=== PATIENT | male | born 1970 | race Caucasian/White ===

== ENCOUNTER 2024-12-02 15:55 | Emergency (ER) | payer MEDICAID, SELFPAY ==
[2024-12-02 16:00] VITALS: BP 94/62; PULSE 96; RESP 24; TEMP 37; O2SAT 95
--- NOTE | 2024-12-02 16:04 | XR_ITS ---
Examination: AP chest single view Technique one AP portable semiupright chest single view Exam date and time: November 24, 2024 1620 hours INDICATIONS: Shortness of breath coughing beginning 2 days ago FINDINGS: Opacity in the lingular segment obscuring detail left cardiac contour Right lung clear Normal heart size IMPRESSION: Pneumonia in the lingular segment left upper lobe
--- NOTE | 2024-12-02 16:05 | PD.EDADULT ---
ED General RME/HPI General Chief complaint: Shortness of Breath/Dyspnea Stated complaint: SOB Time Seen by Provider: 12/02/24 16:02 Arrival date/time: 12/02/24 15:55 CC: Cough shortness of breath vomiting x 1 diarrhea x 1 HPI in the last 5 days significant other had similar symptoms a week ago. Patient denies chest pain or difficulty breathing. Patient continues to smoke half pack of cigarettes a day. Patient has a history of diabetes hypertension hyperlipidemia has not been taking any of the medications for the last week. Related Data Previous Rx's ?Medication ?Instructions ?Recorded meloxicam 7.5 mg tablet 7.5 mg PO QDAY #10 tabs 12/02/24 Review of Systems Review of Systems Narrative Review of Systems: GEN: No fever, no chills, no weight loss EYES: No discharge, no visual changes, no pain HEENT: No ear pain, no congestion, no sore throat PULM: No shortness of breath, + cough, no congestion CV: No chest pain, no dyspnea on exertion, no palpitations GI: No nausea, no vomiting, no diarrhea, no pain, no constipation : No frequency, no urgency, no dysuria MUSC/SKEL: No joint pain, no back pain SKIN: No rash PSYCH: No hallucinations, no depression HEME/LYMPH: No easy bleeding or bruising tendencies NEURO: + weakness, no headache, + body aches ED Exam Narrative Physical exam: [General: Obese not in any acute distress Head normocephalic HEENT: Within acceptable limits Neck is supple nontender Chest equal chest rise nontender to palpation Respiratory: Clear to auscultation no wheezes crackles or rubs CV: Rate rhythm is regular no murmurs rubs or clicks Abdomen is distended secondary to body habitus soft nontender no masses positive bowel sounds all 4 quadrants Back: No CVA tenderness no spinous process tenderness from cervical spine thoracic and lumbar spine Skin: Intact no petechiae rash induration ulceration or crepitus Extremities: Moving all extremity against resistance cap refill less than 2 seconds neurosensory intact Neuro: Awake alert oriented x3 Glascow coma 15 no focal deficits] Course Course Course Narrative: Reassessment of the patient at 1745, the patient's resting comfortably oxygen saturations at 94% on room air. The patient is influenza A positive no other acute finding. Although the chest x-ray is a question of a lingual pneumonia I do not feel the patient has a bacterial infection, this is mostly pneumonia patient will be discharged home on Tamiflu. Quality Measures none Orders Category Date Time Status Bedside COVID-19 Antigen Test NOW Care 12/02/24 16:02 Completed Bedside Influenza A&B Antigen Test NOW Care 12/02/24 16:04 Completed XR chest 1V Stat Exams 12/02/24 16:04 Completed CBC Stat Lab 12/02/24 16:19 Completed CMP [Comprehensive Metabolic Panel] Stat Lab 12/02/24 16:19 Completed Path Review Blood Smear Stat Lab 12/02/24 16:19 Completed None Vital Signs Vital signs: Vital Signs Temperature 98.6 F 12/02/24 16:00 Pulse Rate 96 12/02/24 16:00 Respiratory Rate 24 H 12/02/24 16:00 Blood Pressure 94/62 12/02/24 16:00 Pulse Oximetry (%) 95 12/02/24 16:00 Oxygen Delivery Method Nasal Cannula 12/02/24 16:00 Oxygen Flow Rate 3 12/02/24 16:00 [facility] Patient data External records reviewed:: [facility] previous records and EMS form Clinical information provided by:: patient and EMS Social determinants that could affect healthcare access:: none Patient has the following chronic illnesses:: Smoker diabetes hypertension hyperlipidemia How is presenting disease/condition affected by chronic disease/condition?: no chronic disease Evaluation data The following diagnostics were reviewed and interpreted by me:: lab results Lab and/or radiology exams considered but not ordered:: CBC shows no acute leukocytosis anemia thrombocytopenia CMP shows no significant lecture light imbalances, creatinine 1.5 no transaminitis or T. bili elevation Influenza A positive Interpretation Summary: Influenza A positive Medications Medications considered but not ordered:: None Medication administrations:: None Consultations Consultation(s) initiated? (list below): No Diagnosis Differential Diagnosis ED Complaint MDM: Pneumonia influenza A COVID Most likely diagnosis given after review of the tests above:: Influenza A Admission Indicated Admission indicated?: not indicated Explain why admission is indicated or not indicated:: Stable for outpatient follow-up Admission Request Was there a request for admission?: No Disposition Plan Disposition Plan: Discharge Discharge Attestation Discharge Attestation: The patient and all family members were given an opportunity to ask questions and understood the discharge instructions. Discharge instructions specifically effects, indications for sooner follow up or return to the emergency department, and the expected course of current diagnosis. Patient condition: Stable Medical Decision Making Differential Diagnosis Differential Diagnosis: Pneumonia influenza A COVID Lab Data 12/02/24 16:19 12/02/24 16:19 Labs: Lab Results 12/02/24 Range/Units 16:19 WBC 6.3 (3.8-10.6) Thou/mm3 RBC 4.96 (4.50-5.90) Miln/mm3 Hgb 15.0 (13.5-16.0) g/dL Hct 45.3 (41.0-53.0) % MCV 91 (80-100) fL MCH 30.2 (25.0-35.0) pg MCHC 33.1 (31.0-37.0) g/dl RDW Std Deviation 43.1 (35.1-43.9) fL Plt Count 59 L (140-440) Thou/mm3 Neut % (Auto) 59 (37-80) % Lymph % (Auto) 29 (10-50) % Lyman % (Auto) 10 (0-12) % Eos % (Auto) 2 (0-10) % Baso % (Auto) 1 (0-2.5) % Neut # (Auto) 3.7 (1.8-7.7) Thou/mm3 Lymph # (Auto) 1.8 (1.0-4.8) Thou/mm3 Lyman # (Auto) 0.6 (0.0-0.8) Thou/mm3 Eos # (Auto) 0.1 (0.0-0.5) Thou/mm3 Baso # (Auto) 0.0 (0.0-0.2) Thou/mm3 Immature Gran # (Auto) 0.02 H (0.00-0.00) Thou/mm3 Absolute Nucleated RBC 0.00 (0.00-0.00) Thou/mm3 Immature Gran % 0 (0-0) % Nucleated RBC % 0 (0) /100 WBC Smear Path Review Sent to Pathologist Sodium 134 L (136-145) mMol/L Potassium 4.2 (3.4-5.1) mMol/L Chloride 98 (98-107) mMol/L Carbon Dioxide 29.7 (20.0-31.0) mMol/L Anion Gap 6 L (7-16) BUN 22 (9-23) mg/dL Creatinine 1.5 H (0.6-1.3) mg/dL Estim Creat Clear Calc 73.0 (>60) mL/min eGFR 55 L (60 - ) See Note BUN/Creatinine Ratio 15 (12-20) Ratio Glucose 122 H (74-106) mg/dL Calculated Osmolality 272 L (275-295) Calcium 9.1 (8.3-10.6) mg/dL Corrected Calcium 9.1 (8.5-10.1) mg/dL Total Bilirubin 0.5 (0.3-1.2) mg/dL AST 42 H (0-34) U/L ALT 17 (10-49) U/L Alkaline Phosphatase 86 (46-116) U/L Total Protein 7.6 (5.7-8.2) gm/dL Albumin 4.8 (3.5-5.0) gm/dL Globulin 2.8 (2.3-3.5) gm/dL Albumin/Globulin Ratio 1.7 (1.2-2.2) Misc Test Result Platelets confirmed Discharge Plan Plan Patient Disposition: HOME (Self Care) Patient condition on transfer: Stable Prescriptions/Referrals Prescriptions/Med Rec: New meloxicam 7.5 mg tablet 7.5 mg PO QDAY Qty: 10 0RF Problem List Clinical Impression: Influenza A Patient/Caregiver Discharge Instructions Education Materials: ED Influenza (Adult) Additional Instructions: Rest, take the medications as prescribed, drink plenty of fluids. If there is worsening of symptoms follow-up with your primary care doctor or return the emergency room medially for further evaluation. Print Language: Congolese Stand Alone Forms: Margie Award Info., Work/School Release, Patient Portal Info Letter LUCILLE/ERROL Supervising Physician LUCILLE/ERROL Supervising Physician: Kieran Wells ENP
[2024-12-02 16:34] LABS: Basophils % (Auto) 1 % (0-2.5); Eosinophils # (Auto) 0.1 Thou/mm3 (0.0-0.5); Eosinophils % (Auto) 2 % (0-10); Hematocrit 45.3 % (41.0-53.0); Immature Granulocytes % (Auto) 0 % (0-0); Immature Granulocytes Auto 0.02 Thou/mm3 (0.00-0.00); Lymphocytes # (Auto) 1.8 Thou/mm3 (1.0-4.8); Lymphocytes % (Auto) 29 % (10-50); Mean Corpuscular HGB Conc 33.1 g/dl (31.0-37.0); Mean Corpuscular Hemoglobin 30.2 pg (25.0-35.0); Mean Corpuscular Volume 91 fL (80-100); Monocytes # (Auto) 0.6 Thou/mm3 (0.0-0.8); Monocytes % (Auto) 10 % (0-12); Neutrophils # (Auto) 3.7 Thou/mm3 (1.8-7.7); Neutrophils % (Auto) 59 % (37-80); Nucleated Red Blood Cell % 0 /100 WBC (0); RDW Standard Deviation 43.1 fL (35.1-43.9); Red Blood Count 4.96 Miln/mm3 (4.50-5.90); White Blood Count 6.3 Thou/mm3 (3.8-10.6)
[2024-12-02 16:38] VITALS: BP 106/70; PULSE 78; PULSE 96; RESP 20; TEMP 36.7; O2SAT 90; O2SAT 92; BMI 30.9
[2024-12-02 16:41] LABS: Platelet Count 59 Thou/mm3 (140-440)
[2024-12-02 16:58] LABS: Alanine Aminotransferase 17 U/L (10-49); Albumin, Serum 4.8 gm/dL (3.5-5.0); Albumin/Globulin Ratio 1.7 (1.2-2.2); Alkaline Phosphatase 86 U/L (46-116); Anion Gap 6 (7-16); Aspartate Amino Transferase 42 U/L (0-34); BUN/Creatinine Ratio 15 Ratio (12-20); Bilirubin,Total 0.5 mg/dL (0.3-1.2); Blood Urea Nitrogen 22 mg/dL (9-23); Calcium 9.1 mg/dL (8.3-10.6); Calcium (Corrected) 9.1 mg/dL (8.5-10.1); Carbon Dioxide 29.7 mMol/L (20.0-31.0); Chloride 98 mMol/L (98-107); Creatinine (Component) 1.5 mg/dL (0.6-1.3); Globulin 2.8 gm/dL (2.3-3.5); Glucose 122 mg/dL (74-106); Osmolality,Calculated 272 (275-295); Potassium 4.2 mMol/L (3.4-5.1); Sodium 134 mMol/L (136-145); Total Protein 7.6 gm/dL (5.7-8.2); eGFR 55 See Note
[2024-12-02 17:05] LABS: Slide Review Platelets confirmed
[2024-12-02 17:07] LABS: Path Review Blood Smear Sent to Pathologist
== END 2024-12-02 18:25 | disposition home or self-care (01) ==
LOC: SERX 18:01
PROVIDERS: Registered Nurse General Practice; Emergency Provider Emergency Medicine; PCP Nurse Practitioner Primary Care
DX: J10.1 Influenza due to other identified influenza virus with other respiratory manifestations (principal); Z87.891 Personal history of nicotine dependence
CPT/HCPCS: 36415; 71045; 80053; 85025; 87400; 87811; 99283

== ENCOUNTER 2025-01-11 00:13 | Emergency (ER) | payer MEDICAID, SELFPAY ==
[2025-01-11 00:20] VITALS: BP 117/75; PULSE 105; RESP 18; TEMP 36.8; O2SAT 95; BMI 35.6
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
== END 2025-01-11 03:49 | disposition home or self-care (01) ==
LOC: SERX 03:44
PROVIDERS: Emergency Provider Student in an Organized Health Care Education/Training Program; PCP Nurse Practitioner Primary Care
DX: S61.412A Laceration without foreign body of left hand, initial encounter (principal); W26.0XXA Contact with knife, initial encounter; Y93.G3 Activity, cooking and baking; E11.9 Type 2 diabetes mellitus without complications; E78.5 Hyperlipidemia, unspecified; I10 Essential (primary) hypertension
CPT/HCPCS: 12001; 73120; 99283

== ENCOUNTER 2025-06-12 07:30 | Day surgery (SDC) | payer MEDICAID, SELFPAY ==
[2025-06-11 14:43] VITALS: BMI 39.5
--- NOTE | 2025-06-11 15:50 | EKG_ITS ---
[facility] Test Date: 2025-06-11 Pat Name: LAUREEN HERNANDEZ Department: Room: - Gender: Male Medical Driver: [place] : 1970 Requested By: Collin Mobley Order Number: [id number] Reading MD: Collin Mobley Measurements Intervals [place] Rate: 102 P: 66 [place]: 158 QRS: 81 QRSD: 97 T: 79 QT: 316 QTc: 413 Interpretive Statements SINUS TACHYCARDIA ABNORMAL RHYTHM ECG No previous ECG available for comparison /store/[email or web address]/[id number]/[id number].pdf
[2025-06-11 17:52] LABS: Basophils # (Auto) 0.1 Thou/mm3 (0.0-0.2); Basophils % (Auto) 1 % (0-2.5); Eosinophils # (Auto) 0.3 Thou/mm3 (0.0-0.5); Eosinophils % (Auto) 2 % (0-10); Hematocrit 46.3 % (41.0-53.0); Hemoglobin 15.5 g/dL (13.5-16.0); Immature Granulocytes Auto 0.07 Thou/mm3 (0.00-0.00); Lymphocytes # (Auto) 3.1 Thou/mm3 (1.0-4.8); Lymphocytes % (Auto) 29 % (10-50); Mean Corpuscular HGB Conc 33.5 g/dl (31.0-37.0); Mean Corpuscular Hemoglobin 30.9 pg (25.0-35.0); Mean Corpuscular Volume 92 fL (80-100); Monocytes # (Auto) 0.8 Thou/mm3 (0.0-0.8); Monocytes % (Auto) 8 % (0-12); Neutrophils # (Auto) 6.3 Thou/mm3 (1.8-7.7); Neutrophils % (Auto) 59 % (37-80); Nucleated Red Blood Cell # 0.00 Thou/mm3 (0.00-0.00); Nucleated Red Blood Cell % 0 /100 WBC (0); Platelet Count 275 Thou/mm3 (140-440); RDW Standard Deviation 43.1 fL (35.1-43.9); Red Blood Count 5.01 Miln/mm3 (4.50-5.90); White Blood Count 10.7 Thou/mm3 (3.8-10.6)
[2025-06-11 17:56] LABS: Alanine Aminotransferase 17 U/L (10-49); Albumin, Serum 4.6 gm/dL (3.5-5.0); Albumin/Globulin Ratio 1.7 (1.2-2.2); Alkaline Phosphatase 101 U/L (46-116); Anion Gap 11 (7-16); Aspartate Amino Transferase 25 U/L (0-34); BUN/Creatinine Ratio 11 Ratio (12-20); Bilirubin,Total 0.3 mg/dL (0.3-1.2); Blood Urea Nitrogen 17 mg/dL (9-23); Calcium 9.7 mg/dL (8.3-10.6); Calcium (Corrected) 9.7 mg/dL (8.5-10.1); Carbon Dioxide 26.1 mMol/L (20.0-31.0); Chloride 106 mMol/L (98-107); Creatinine (Component) 1.5 mg/dL (0.6-1.3); Estimated Creatinine Clearance 81.5 mL/min (>60); Globulin 2.7 gm/dL (2.3-3.5); Glucose 194 mg/dL (74-106); Osmolality,Calculated 291 (275-295); Potassium 4.4 mMol/L (3.4-5.1); Sodium 143 mMol/L (136-145); Total Protein 7.3 gm/dL (5.7-8.2); eGFR 55 See Note
[2025-06-11 18:16] LABS: INR 0.9 (0.9-1.3); Partial Thromboplastin Time 25.6 Seconds (22.0-36.0); Prothrombin Time 10.0 Seconds (9.0-12.2)
[2025-06-12] VITALS (8 sets, daily range): BP systolic 110–131; BP diastolic 68–88; PULSE 85–94; RESP 15–22; TEMP 36.4–36.6; O2SAT 93–98; BMI 40.0
[2025-06-12] MEDS: RINGERS LACTATED 1000 ML 1,000 ML 20 ML IV (08:01)
--- NOTE | 2025-06-12 08:52 | SUR.PREOP ---
Patient expressed gratitude for prayer before their procedure.
[2025-06-12] MEDS: ALBUTEROL RT 2.5 MG/3 ML NEBU INH (10:16)
--- NOTE | 2025-06-12 11:50 | SUR.PHASEI ---
pt arrived to PACU via gurney drowsy but arouses to voice, breathing unlabored, dressing to abdomen clean, dry, and intact, report from Blayne MEJIA and Dr Martin
--- NOTE | 2025-06-12 11:57 | PD.SUROPNT ---
Date of Procedure 06/12/25 Pre Op Diagnosis Symptomatic umbilical hernia with infection Post Op Diagnosis Same Procedure Repair of the umbilical hernia with 1.[address] mesh Findings Patient was found to have large defect which admitted easily index finger. The sac contained omentum. There was infection of the skin edges of the umbilicus. Procedure Description After the patient was brought to the operating room endotracheal anesthesia was given. Patient received 2 g of Ancef for prophylaxis because of the infection of the umbilicus. Then the abdomen was prepped with ChloraPrep solution and draped in a sterile manner. Timeout was performed. Then I made a curved incision in the lower portion of the abdomen after injecting half percent Marcaine. The skin edges were retracted using Deena retractor and the sac was dissected away from the skin. The sac was opened and was found to contain omentum which was attached to the wall of the sac. This was released and the omentum was pushed in without difficulty. Then the sac was excised all the way down to the fascia and the I assessed the defect which was about 2 cm in diameter. The the patient obviously required a mesh because it was an oval defect with primary closure in this morbidly obese patient would definitely fail. Even though there is a superficial infection at the umbilicus I did not see any contraindication to using the mesh. The superficial infection in the umbilical skin was confined only to the skin and there was no purulent drainage. Therefore the mesh was placed and then I attached the Marlex strap to the edges of the fascia using 2-0 Prolene. I also placed sutures on the opposite side of the Marlex mesh to hold it in place in the anterior abdominal wall. Subcutaneous tissue was closed with 3-0 chromic and the wound was irrigated and the umbilical skin which was showing some redness was excised using a 15 blade knife. Then the skin edges were closed with 3 interrupted 4-0 nylon stitches and dressing was applied with Adaptic and 4 x 4 gauze and patient tolerated the procedure well. Anesthesia GETA Pathology / specimen None IVF Infused 900 Estimated Blood Loss 30 Condition Stable Disposition PACU Surgeon Kerry Moreno MD Surgical Staff Operation Date: 06/12/25 10:15 Case Staff Anesthesiologist: Mitch Martin RN First Assistant: Phillip Garza
--- NOTE | 2025-06-12 12:16 | SUR.PHASEI ---
1216: Pt. AAOx4, vitals stable, breathing unlabored, no complaint of pain or nausea, dressing to ABD CDI, no active bleed noted, report received from Lida Serrano RN.
--- NOTE | 2025-06-12 12:16 | SUR.PHASEI ---
report to Fernanda MEJIA
--- NOTE | 2025-06-12 12:50 | SUR.PHASEII ---
1250: Pt. AAOx4, vitals stable, breathing unlabored, no complaint of pain or nausea, dressing to ABD CDI, no active bleed noted, pt. tolerated sips of water well, pt. ambulated to wheelchair with steady gait and no assist, no complications. Gave discharge instructions to the pt. and his ride, both verbalized understanding and had no further questions. Pt. left with all personal belongings.
== END 2025-06-12 12:50 | disposition home or self-care (01) ==
PROVIDERS: PCP Nurse Practitioner Primary Care; Referring Provider Surgery; Visit Provider Surgery
PROC: (CPT 49591; principal; 2025-06-12 10:00)
DX: K42.9 Umbilical hernia without obstruction or gangrene (principal); Z01.810 Encounter for preprocedural cardiovascular examination; R94.31 Abnormal electrocardiogram [ECG] [EKG]; E66.01 Morbid (severe) obesity due to excess calories; E11.9 Type 2 diabetes mellitus without complications; I10 Essential (primary) hypertension; Z68.41 Body mass index [BMI] 40.0-44.9, adult
CPT/HCPCS: 49591; 36415; 80053; 85025; 85610; 85730; 93005; A4217; A4649; C1781; J0131; J0690; J1100; J2250; J2371; J2405; J2704; J3010; J3490; J7120; A9270